=== PATIENT | male | born 1990 | race Caucasian/White ===

== ENCOUNTER 2017-09-10 17:17 | Emergency (ER) | payer BC ==
--- NOTE | 2017-09-10 17:38 | EDM.PDOC ---
ED HPI GENERAL MEDICAL PROBLEM - General Chief Complaint: General Stated Complaint: CHILLS/SORE BODY/POSS FLU Time Seen by Provider: 09/10/17 17:33 Source of Information: Reports: Patient History Limitations: Reports: No Limitations - History of Present Illness INITIAL COMMENTS - FREE TEXT/NARRATIVE: HISTORY AND PHYSICAL: History of present illness: Patient is a 26-year-old male who presents to the emergency room today with complaints of body aches, fever and chills which started today. She is concerned he may have the flu. Patient has not received the influenza vaccine this year. Current smoker, one pack per day, for 9 years. Review of systems: As per history of present illness and below otherwise all systems reviewed and negative. Past medical history: As per history of present illness and as reviewed below otherwise noncontributory. Surgical history: As per history of present illness and as reviewed below otherwise noncontributory. Social history: No reported history of drug or alcohol abuse. Family history: As per history of present illness and as reviewed below otherwise noncontributory. Physical exam: Gen.: Well-developed and well-nourished 26-year-old male. Alert and oriented. Nontoxic and in no acute distress. HEENT: Atraumatic, normocephalic, pupils reactive, negative for conjunctival pallor or scleral icterus, mucous membranes moist, throat clear, neck supple, nontender, trachea midline. No drooling or trismus noted, no meningeal signs. Lungs: Clear to auscultation, breath sounds equal bilaterally, chest nontender. Heart: S1S2, regular, negative for clicks, rubs, or JVD. Abdomen: Soft, nondistended, nontender. Negative for masses or hepatosplenomegaly. Negative for costovertebral tenderness. Pelvis: Stable nontender. Genitourinary: Deferred. Rectal: Deferred. Extremities: Atraumatic, negative for cords or calf pain. Neurovascular unremarkable. Neuro: Awake, alert, oriented. Cranial nerves II through XII unremarkable. Cerebellum unremarkable. Motor and sensory unremarkable throughout. Exam nonfocal. Patient is positive for influenza A and B, this was shared with the patient. Did offer to do further lab work to investigate his symptoms. The patient declined at this time. He states he is surprised he does not have the flu. I did discuss that he is likely still has a viral illness but may not be the strains we test for here. We discussed supportive care measures to do at home with Tylenol/ibuprofen, increasing oral fluids, rest. Ultram, 12 tablets, no refills -has been prescribed for moderate to severe body aches. If his symptoms do not improve or worsen he is to return to the emergency room or follow-up with his primary care provider. The patient voices understanding and is agreeable to plan of care. He denies any further questions at this time. Diagnostics: Influenza [employer]: [] Impression: Viral illness Plan: 1. Please take your Ultram as prescribed. One tablet every 4-6 hours as needed. This medication may cause drowsiness so do not take it while driving or needing to be functioning at work. He may also take Tylenol and/or ibuprofen as needed. Supportive care measures such as increasing oral fluids to prevent dehydration and rest. 2. Follow-up with your primary care provider in the next 1-2 days. Return to the ED as needed and as discussed. Definitive disposition and diagnosis as appropriate pending reevaluation and review of above. Generalized Pain Score (Numeric/FACES): 6 - Related Data Allergies Allergy/AdvReac Type Severity Reaction Status Date / Time No Known Allergies Allergy Verified 09/10/17 17:34 Home Meds: Home Meds . [No Known Home Meds] 06/06/14 [History] Social & Family History - Tobacco Use Smoking Status *Q: Current Every Day Smoker Years of Tobacco use: 6 - Alcohol Use Days Per Week of Alcohol Use: 0 - Recreational Drug Use Recreational Drug Use: No ED ROS GENERAL - Review of Systems Review Of Systems: See Below ED EXAM, GENERAL - Physical Exam Exam: See Below (See dictation) Course - Vital Signs Last Recorded V/S: Last Vital Signs Temp 99.3 F 09/10/17 17:31 Pulse 102 H 09/10/17 17:31 Resp 18 09/10/17 17:31 BP 120/87 09/10/17 17:31 Pulse Ox 99 09/10/17 17:31 Departure - Departure Time of Disposition: 18:48 Disposition: Home, Self-Care 01 Clinical Impression: Viral illness - Discharge Information Referrals: PCP,None [Primary Care Provider] - Forms: ED Department Discharge Additional Instructions: My general discharge The following information is given to patients seen in the emergency department who are being discharged to home. This information is to outline your options for follow-up care. We provide all patients seen in our emergency department with a follow-up referral. The need for follow-up, as well as the timing and circumstances, are variable depending upon the specifics of your emergency department visit. If you don't have a primary care physician on staff, we will provide you with a referral. We always advise you to contact your personal physician following an emergency department visit to inform them of the circumstance of the visit and for follow-up with them and/or the need for any referrals to a consulting specialist. The emergency department will also refer you to a specialist when appropriate. This referral assures that you have the opportunity for follow-up care with a specialist. All of these measure are taken in an effort to provide you with optimal care, which includes your follow-up. Under all circumstances we always encourage you to contact your private physician who remains a resource for coordinating your care. When calling for follow-up care, please make the office aware that this follow-up is from your recent emergency room visit. If for any reason you are refused follow-up, please contact the [facility] Emergency Department at and asked to speak to the emergency department charge nurse. [facility] [address] [place] [id number] 1. Please take your Ultram as prescribed. One tablet every 4-6 hours as needed. This medication may cause drowsiness so do not take it while driving or needing to be functioning at work. He may also take Tylenol and/or ibuprofen as needed. Supportive care measures such as increasing oral fluids to prevent dehydration and rest. 2. Follow-up with your primary care provider in the next 1-2 days. Return to the ED as needed and as discussed.
== END 2017-09-10 19:03 | disposition home or self-care (01) ==
LOC: MW.ED 17:17
DX: B34.9 Viral infection, unspecified (principal); F17.210 Nicotine dependence, cigarettes, uncomplicated
CPT/HCPCS: 87804; 99283; 99284

== ENCOUNTER 2025-07-15 11:50 | Emergency (ER) | payer BC ==
[2025-07-15] MEDS: Diphtheria,Pertussis(Acell),Tetanus Vaccine 0.5 ML Syringe IM ONE (12:28)
== END 2025-07-15 13:15 | disposition home or self-care (01) ==
LOC: MW.ED 11:50
DX: S61.213A Laceration without foreign body of left middle finger without damage to nail, initial encounter (principal); Z86.16 Personal history of COVID-19; Z23 Encounter for immunization; W26.8XXA Contact with other sharp object(s), not elsewhere classified, initial encounter; Y92.009 Unspecified place in unspecified non-institutional (private) residence as the place of occurrence of the external cause
CPT/HCPCS: 12001; 90471; 90715; 99282; J2003; 99283